=== PATIENT | female | born 1965 | race Caucasian/White ===

== ENCOUNTER 2017-01-04 06:01 | Inpatient (IN) | payer OTHER ==
[~2017-01-04] VITALS: Ht 157.5 cm; Wt 84.4 kg
[2017-01-04] MEDS ORDERED: ACETAMINOPHEN/CODEINE 300/30MG 1 TAB PO PRN (07:30)
[2017-01-04] MEDS ORDERED: ONDANSETRON 4 MG/2 ML VIAL IVP PRN (07:30)
[2017-01-04] MEDS ORDERED: IBUP-2213 PO (07:50)
[2017-01-04] MEDS ORDERED: FISH100053 PO (07:50)
[2017-01-04] MEDS ORDERED: BUPIVACAINE-MPF/EPI 0.5% 10 ML VIAL INJ ONE (08:36)
[2017-01-04] MEDS ORDERED: BUPIVACAINE-MPF/EPI 0.5% 30 ML VIAL INJ ONE (08:46)
[2017-01-04] MEDS ORDERED: PROPOFOL 200 MG/20 ML VIAL IV ONE (08:56)
[2017-01-04] MEDS ORDERED: GLYCOPYRROLATE 0.2 MG/ML VIAL IV ONE (08:56)
[2017-01-04] MEDS ORDERED: KETOROLAC 60 MG/2 ML VIAL IM ONE (08:56)
[2017-01-04] MEDS ORDERED: DESFLURANE 240 ML BTL INH ONE (08:56)
[2017-01-04] MEDS ORDERED: ONDANSETRON 4 MG/2 ML VIAL IVP ONE (08:56)
[2017-01-04] MEDS ORDERED: SUCCINYLCHOLINE CHLORIDE 200 MG/10 ML VIAL IV ONE (08:56)
[2017-01-04] MEDS ORDERED: NEOSTIGMINE 1:1000 10 MG/10 ML VIAL IM ONE (08:56)
[2017-01-04] MEDS ORDERED: ROCURONIUM 50 MG/5 ML VIAL IV ONE (08:56)
[2017-01-04] MEDS ORDERED: MIDAZOLAM 2 MG/2 ML VIAL ONE (09:06)
[2017-01-04] MEDS ORDERED: MORPHINE SULFATE 4 MG/ML SYR ONE ×3 (09:06→10:58)
[2017-01-04] MEDS ORDERED: fentaNYL 0.05 MG/ML VIAL ONE (09:06)
[2017-01-04] MEDS ORDERED: MORPHINE SULFATE 2 MG/ML SYR IVP PRN (09:40)
[2017-01-04] MEDS ORDERED: MORPHINE SULFATE 4 MG/ML SYR IVP PRN (09:40)
[2017-01-04] MEDS ORDERED: METOCLOPRAMIDE 10 MG/2 ML INJ VIAL IVP PRN (09:40)
[2017-01-04] MEDS ORDERED: MIDAZOLAM 2 MG/2 ML VIAL IV ONE (09:40)
[2017-01-04] MEDS: MORPHINE SULFATE 4 MG/ML SYR IVP PRN ×2 (10:30→10:50)
[2017-01-04] MEDS ORDERED: METOCLOPRAMIDE 10 MG/2 ML INJ VIAL ONE (10:53)
[2017-01-04 11:25] VITALS: BP 122/58
--- NOTE | 2017-01-04 11:25 | NUR ---
PT RECEIVED FROM OR, ALERT AND ORIENTED X4, WALLISIAN SPEAKING. BREATHING EVENLY AND UNLABORED. NO SIGNS OF ACUTE DISTRESS, SKIN IS WARM AND DRY. S/P HYSTERECTOMY.NOTED ABDOMINAL DRESSING ON MID LOWER QUADRANT. NO BLEEDING NOTED, KEPT CLEAN DRY AND INTACT. NO SIGNS OF ANY NAUSEA OR VOMITING, WITH GRISSOM CATHETER INTACT AND PATENT. REPORTED BY JANIYA DUNCAN FROM OR. PT OUTPUT FROM GRISSOM CATHETER IS 50ML. PT MEDICATED FOR PAIN REPORTED, WILL CONTINUE PAIN MANAGEMENT ORDERED. ORIENTED TO HOSPITAL ENVIRONMENT, CALL LIGHT WITHIN REACH.
--- NOTE | 2017-01-04 11:35 | NUR ---
CM NOTE INITIAL REVIEW SENT TO [facility] FAX# [phone] PH# [place] [phone] [place] [phone] AND TO [facility] FAX# [phone] PH# [phone]
--- NOTE | 2017-01-04 11:42 | NUR ---
SPOKE WITH JACE DUNCAN FROM OR, REPORTED PT RECEIVED CLEOCIN IVPB ORDERED. CONTINUE TO MONITOR.
[2017-01-04] MEDS ORDERED: INFLUENZA VIRUS VACCINE QUAD 0.5 ML SYR IMVAC SCH (12:00)
[2017-01-04] MEDS ORDERED: PNEUMOCOCCAL VACCINE 23 MCG/0.5 ML VIAL IMVAC SCH (12:00)
[2017-01-04] MEDS: MORPHINE SULFATE 4 MG/ML SYR IM/IVP PRN ×3 (12:03→22:54)
[2017-01-04] MEDS ORDERED: CLINDAMYCIN 600 MG in DEXTROSE 5% 50 ML IV SCH (13:00)
[2017-01-04 16:00] VITALS: BP_SYST 111; BP_SYST 133; BP_DIAS 69; BP_DIAS 91
--- NOTE | 2017-01-04 18:42 | NUR ---
PT ALERT AND RESPONSIVE, NO SIGNS OF ACUTE DISTRESS. WILL ENDORSE TO ONCOMING CHEMISTRY LAB INSTRUCTOR NURSE FOR CONTINUITY OF CARE.
--- NOTE | 2017-01-04 19:30 | NUR ---
RECEIVED PT IN STABLE CONDITION FROM AM NURSE. AWAKE,ALERT AND ORIENTED X4, [place] SPEAKING. MED SURG PT. PT S/P HYSTERECTOMY ,WITH LOWER ABDOMINAL DRESSING ,DRY AND INTACT, NO BLEEDING NOTED. ON BEDREST. HAS GRISSOM CATHETER TO GRAVITY DRAINING CLEAR YELLOW URINE. HL ONLY ON THE RT HAND #20, CLEAR AND PATENT. ENCOURAGED TO TURN TO SIDE AND DEEP BREATH AND COUGH , VERBALIZED UNDERSTANDING. CALL LIGHT PLACED WITHIN EASY REACH. WILL CONTINUE TO MONITOR.
[2017-01-04 19:52] VITALS: BP 112/49
--- NOTE | 2017-01-04 21:00 | NUR ---
TALKED TO PT TO CLARIFY IF SHE REALLY WANTS BOTH PNA AND FLU VACCINE. PT REFUSED TO HAVE BOTH .
--- NOTE | 2017-01-04 21:15 | NUR ---
PT TOLERATING CLEAR LIQUIDS AT THIS TIME.
[2017-01-04 22:49] VITALS: BP 110/54
--- NOTE | 2017-01-04 23:45 | NUR ---
CHECK ON PT. HAS SMALL VAGINAL BLEEDING NOTED ON MOHINI PADS. CLEANED AND KEPT DRY. NEW MOHINI PADS IN PLACED. WILL CONTINUE TO MONITOR.
--- NOTE | 2017-01-05 01:00 | NUR ---
SLEEPING WELL AT THIS TIME. NO S/S OF ANY DISCOMFORT NOR PAIN NOTED . WILL CONTINUE TO MONITOR.
--- NOTE | 2017-01-05 03:00 | NUR ---
SLEEPING AT THIS TIME. NO S/S OF ANY DISCOMFORT NOTED.
[2017-01-05 04:04] VITALS: BP 104/69
[2017-01-05] MEDS: MORPHINE SULFATE 4 MG/ML SYR IM/IVP PRN ×4 (04:06→22:12)
[2017-01-05 06:04] LABS: BASOPHILS # (AUTO) 0.1 K/uL (0.00-0.22); BASOPHILS % (AUTO) 0.6 % (0.0-2.0); EOSINOPHILS # (AUTO) 0.1 K/uL (0-0.4); EOSINOPHILS % (AUTO) 1.2 % (0.0-4.0); HEMATOCRIT 34.3 % (36-48); HEMOGLOBIN 11.6 g/dL (12.0-16.0); LYMPHOCYTES # (AUTO) 1.7 K/uL (2.5-16.5); LYMPHOCYTES % (AUTO) 16.8 % (20.5-51.1); MEAN CORPUSCULAR HEMOGLOBIN 29 pg (27-31); MEAN CORPUSCULAR HGB CONC 34 g/dL (33-37); MEAN CORPUSCULAR VOLUME 86 fL (80-94); MONOCYTES # (AUTO) 0.8 K/uL (0.8-1.0); MONOCYTES % (AUTO) 7.7 % (1.7-9.3); NEUTROPHILS # (AUTO) 7.5 K/uL (1.8-7.7); NEUTROPHILS % (AUTO) 73.7 % (42.2-75.2); PLATELET COUNT (AUTO) 233 K/uL (140-450); RED BLOOD CELL COUNT(AUTO) 4.01 MIL/uL (4.20-5.40); WHITE BLOOD COUNT (AUTO) 10.2 K/uL (4.8-10.8)
--- NOTE | 2017-01-05 06:30 | NUR ---
GRISSOM CATH DISCONTINUED ORDERED. TOLERATED WELL. STILL WITH SMALL AMOUNT VAGINAL BLEED. CLEANED AND KEPT DRY. MOHINI PADS IN PLACED. INSTRUCTED TO CALL IF NEED TO VOID FOR ASSISTANCE TO BATHROOM.
--- NOTE | 2017-01-05 07:15 | NUR ---
ENDORSED PT IN STABLE CONDITION TO AM NURSE.
--- NOTE | 2017-01-05 07:16 | NUR ---
PT ALERT AND ORIENTED X4, ARMENIAN SPEAKING. BREATHING EVENLY AND UNLABORED. NO SIGNS OF ACUTE DISTRESS, SKIN IS WARM AND DRY. S/P HYSTERECTOMY, KEPT ABDOMINAL DRESSING ON MID LOWER QUADRANT CLEAN DRY AND INTACT, NO BLEEDING NOTED. NO SIGNS OF ANY NAUSEA OR VOMITING, ABLE TO VOID REPORTED BY SHOE CEMENTER RN AFTER FC IS REMOVED. CONTINUE CARE WITH PAIN MANAGEMENT, SAFETY PRECAUTIONS MAINTAINED. CALL LIGHT WITHIN REACH.
--- NOTE | 2017-01-05 09:00 | NUR ---
WAS SEEN BY DR. Aroldo WEISS, REPORTED PT'S CURRENT STATUS. NO NEW ORDERS AT THIS TIME. CONTINUE TO MONITOR.
--- NOTE | 2017-01-05 09:04 | NUR ---
PATIENT HAS BEEN SCREENED AND CATEGORIZED MODERATE NUTRITION RISK. PATIENT WILL BE SEEN WITHIN 3-5 DAYS OF ADMISSION. 01/06/17-01/08/[address]
--- NOTE | 2017-01-05 11:14 | NUR ---
CM NOTE CONCURRENT REVIEW SENT TO [facility] FAX# [phone] PH# [place] [phone] [place] [phone] AND TO [facility] FAX# [phone] PH# [phone] [facility] [id number]
[2017-01-05 16:00] VITALS: BP 103/60
--- NOTE | 2017-01-05 17:52 | NUR ---
PT C/O BURNING SENSATION UPON URINATION, PAGED DR. Aroldo WEISS AWAITING FOR RESPONSE. ENCOURAGE TO INCREASE FLUID INTAKE TOLERATED.
--- NOTE | 2017-01-05 18:08 | NUR ---
SPOKE WITH DR. Aroldo WEISS MADE AWARE OF PT'S CURRENT STATUS. VERBALIZED MD TO SEE PT TOMORROW AND WILL PLACE ON PO ANTIBIOTICS UPON D/C.
--- NOTE | 2017-01-05 18:22 | NUR ---
RECEIVED NEW MED ORDER FROM DR. Aroldo WEISS. NOTED AND CARRIED OUT.
--- NOTE | 2017-01-05 18:51 | NUR ---
PT ALERT AND RESPONSIVE, NO SIGNS OF ACUTE DISTRESS. WILL ENDORSE TO ONCOMING FINAL ASSEMBLY WORKER NURSE FOR CONTINUITY OF CARE.
--- NOTE | 2017-01-05 19:23 | NUR ---
RECEIVED REPORT FROM RUPINDER RN FOR CONTINUITY OF CARE. PATIENT IS A&OX4, CROATIAN SPEAKING, DISCUSSED PLAN OF CARE WITH PATIENT, VERBALIZED UNDERSTANDING. SHIFT ASSESSMENT DONE, VS TAKEN, STABLE. NO S/S OF RESPIRATORY DISTRESS NOTED ON ROOM AIR. PATIENT STATES ABDOMINAL PAIN, TOLERABLE AT THIS TIME, WILL FOLLOW UP. PT HAS SURGICAL INCISION S/P HYSTERECTOMY 01/04/17, DRESSING TO ABDOMEN DRY AND INTACT. IV TO RT HAND 20 GAUGE PATENT AND FLUSHED. SAFETY PRECAUTIONS ENFORCED. CALL LIGHT PLACED WITHIN REACH. WILL CONTINUE TO MONITOR.
[2017-01-05 20:00] VITALS: BP 117/64
[2017-01-05] MEDS: PHENAZOPYRIDINE 100 MG TAB PO SCH (20:21)
--- NOTE | 2017-01-05 20:21 | NUR ---
DUE MEDICATION ADMINISTERED, TOLERATED WELL. PATIENT DENIES PAIN AT THIS TIME. CALL LIGHT WITHIN REACH.
--- NOTE | 2017-01-05 22:12 | NUR ---
PATIENT AMBULATED TO RESTROOM, MODERATE AMOUNT OF BLOOD WITH URINATION. PROVIDED PATIENT PAD AND NEW UNDER GARMENTS. CLEANED UP PT AND ASSISTED TO CHAIR AT BEDSIDE. PT C/O 06/01 PAIN, MEDICATED PER MD ORDER. CALL LIGHT WITHIN REACH.
[2017-01-06] VITALS: BP 131/72
--- NOTE | 2017-01-06 00:03 | NUR ---
PT AMBULATED TO RESTROOM, MODERATE AMOUNT OF BLOOD ON PAD. PT VOIDED. VS TAKEN, STABLE. CALL LIGHT WITHIN REACH.
--- NOTE | 2017-01-06 02:15 | NUR ---
PT IS SLEEPING. NO S/S OF DISTRESS OR DISCOMFORT NOTED. CALL LIGHT WITHIN REACH.
--- NOTE | 2017-01-06 04:11 | NUR ---
PATIENT IS SLEEPING, EASILY WAKEN UP. CHECKED ABDOMINAL DRESSING, DRY AND INTACT. CALL LIGHT WITHIN REACH.
--- NOTE | 2017-01-06 06:35 | NUR ---
PT UP TO USE RESTROOM, VOIDED. MODERATE AMOUNT OF BLOOD ON MOHINI PAD, SMALL CLOTS PASSED. WILL CONTINUE TO MONITOR.
--- NOTE | 2017-01-06 07:17 | NUR ---
ENDORSED PATIENT TO KIKO DUNCAN FOR CONTINUITY OF CARE, PATIENT IS IN STABLE CONDITION.
[2017-01-06] MEDS: PHENAZOPYRIDINE 100 MG TAB PO SCH ×3 (09:22→17:42)
--- NOTE | 2017-01-06 10:08 | NUR ---
CM NOTE CONCURRENT REVIEW SENT TO [facility] FAX# [phone] PH# [place] [phone] [place] [phone] AND TO [facility] FAX# [phone] PH# [phone] [facility] [id number]
[2017-01-06] MEDS: MORPHINE SULFATE 4 MG/ML SYR IM/IVP PRN (10:58)
--- NOTE | 2017-01-06 11:45 | NUR ---
PT IS SLEEPING. NO SIGNS OF DISTRESS. WILL CONTINUE TO MONITOR PT.
[2017-01-06 13:04] VITALS: BP 124/73
--- NOTE | 2017-01-06 13:42 | NUR ---
RESTING COMFORTABLY. DAUGHTER AT BED SIDE. NO COMPLAINTS OF PAIN. NO DISTRESS. WILL CONTINUE TO MONITOR PT.
--- NOTE | 2017-01-06 15:00 | NUR ---
REMOVED THE DRESSING ON ABDOMEN. CLEANED W/ NS. PATTED DRY. COUNTED 14 LEFTY. TOOK PICTURE FOR CHART. REAPPLIED ABD PAD AND TAPE. GAVE INSTRUCTIONS ON CARE. PT TOLERATED WELL.
--- NOTE | 2017-01-06 17:00 | NUR ---
STILL WAITING FOR DR. WEISS. PT IS RESTING IN BED. NO COMPLAINTS. WILL CONTINUE TO MONITOR PT.
--- NOTE | 2017-01-06 19:20 | NUR ---
ENDORSED PT TO THE NIGHTSHIFT NURSE AT BEDSIDE. PT ALREADY DRESSED AND READY TO BE DISCHARGED. DR. WEISS WAS HERE TO WRITE D/C ORDERS. [facility] WILL FINISH D/C PROCESS. PT IS STABLE.
--- NOTE | 2017-01-06 19:21 | NUR ---
RECEIVED REPORT FROM KIKO DUNCAN FOR CONTINUITY OF CARE. PATIENT IS A&OX4, [place] SPEAKING, DISCUSSED PLAN OF CARE WITH PATIENT REGARDING DISCHARGE, VERBALIZED UNDERSTANDING. SHIFT ASSESSMENT DONE, VS TAKEN, STABLE. NO S/S OF RESPIRATORY DISTRESS NOTED ON ROOM AIR. PATIENT DENIES PAIN. PT HAS SURGICAL INCISION TO LOWER ABDOMEN, S/P HYSTERECTOMY 01/04/17, DRESSING TO ABDOMEN DRY AND INTACT. IV TO RT HAND 20 GAUGE PATENT AND FLUSHED. SAFETY PRECAUTIONS ENFORCED. CALL LIGHT PLACED WITHIN REACH. FAMILY MEMBERS AT BEDSIDE. WILL CONTINUE TO MONITOR.
--- NOTE | 2017-01-06 20:16 | NUR ---
DISCHARGE INSTRUCTIONS REINFORCED, EDUCATION GIVEN, PT ABLE TO VERBALIZE UNDERSTANDING. DISCUSSED MEDICATIONS TO BE TAKEN AT HOME PER MD ORDER, DISCUSSED FOLLOW UP INSTRUCTIONS WITH PATIENT, VERBALIZED UNDERSTANDING. IV TO RT HAND REMOVED, CANNULA INTACT. WRISTBANDS REMOVED. ALL BELONGINGS COLLECTED FROM ROOM. PATIENT ESCORTED WITH FAMILY MEMBERS TO HOSPITAL EXIT. AMBULATING WITH NO SIGNS OF DIFFICULTY.
== END 2017-01-06 20:15 | disposition home or self-care (01) | DRG 850 ==
LOC: MMU 06:01 → MTU 11:33
PROVIDERS: ADMIT Obstetrics & Gynecology; ATTEND Obstetrics & Gynecology
PROC: 0UTC0ZZ Resection of Cervix, Open Approach (ICD-10-PCS; 2017-01-04)
PROC: 0UT20ZZ Resection of Bilateral Ovaries, Open Approach (ICD-10-PCS; 2017-01-04)
PROC: 0UT70ZZ Resection of Bilateral Fallopian Tubes, Open Approach (ICD-10-PCS; 2017-01-04)
PROC: 0UT90ZZ Resection of Uterus, Open Approach (ICD-10-PCS; principal; 2017-01-04 09:00)
DX: R87.619 Unspecified abnormal cytological findings in specimens from cervix uteri (principal); G89.29 Other chronic pain; R10.2 Pelvic and perineal pain; Z88.0 Allergy status to penicillin
CPT/HCPCS: 36415; 71010; 85025; 86886; 86900; 86901; 87081; 93005; J0330; J1885; J2250; J2270; J2405; J2704; J2710; J2765; J3010; J3490; J7060; J7120; Q0092